=== PATIENT | male | born 1950 | race Caucasian/White ===

== ENCOUNTER 2018-06-10 09:58 | Emergency (ER) | payer OTHER, MEDICARE ==
[~2018-06-10] VITALS: Ht 185.4 cm; Wt 94.8 kg
[2018-06-10 10:18] VITALS: BP 144/70
[2018-06-10] MEDS ORDERED: CYCLOBENZAPRINE 10 MG TABLET. PO ONE (10:45)
[2018-06-10] MEDS ORDERED: traZODone 50 MG TABLET. PO STA (10:45)
--- NOTE | 2018-06-10 10:54 | PHYS DOC ---
Past Medical History Past Medical History: Hypertension Adult General Chief Complaint Chief Complaint: BACK PAIN OR INJURY HPI HPI Patient is a 67 year old who presents today complaining of mild lower back pain nonradiating in nature that has been going on for 3 days. Patient states he has history of chronic back pain and this is an exacerbation of his back pain. He states he typically takes a sleeping pill and sometimes a muscle relaxers. He states has not taken them for almost 3 days because the is admitted in the hospital at [facility] for colon cancer treatment and he has to be in the hospital with her every day. He states he has been sleeping on a recliner which exacerbates his pain. He is requesting trazodone and cyclobenzaprine which he takes occasionally for his symptoms. Denies any mid back pain, upper back pain, denies any chest pain or shortness of breath. Denies any fever cough nausea vomiting. Denies any urgency frequency or dysuria. Review of Systems Review of Systems Constitutional: Denies fever or chills [] Eyes: Denies change in visual acuity, redness, or eye pain [] HENT: Denies nasal congestion or sore throat [] Respiratory: Denies cough or shortness of breath [] Cardiovascular: No additional information not addressed in HPI [] GI: Denies abdominal pain, nausea, vomiting, bloody stools or diarrhea [] : Denies dysuria or hematuria [] Musculoskeletal: Reports low back pain Integument: Denies rash or skin lesions [] Neurologic: Denies headache, focal weakness or sensory changes [] All other systems were reviewed and found to be within normal limits, except as documented in this note. Current Medications Current Medications Current Medications Medications (Trade) Dose Ordered Sig/Raudel Start Time Stop Time Status Last Admin Dose Admin Cyclobenzaprine HCl (Flexeril) 10 mg 1X ONCE 06/10/18 10:45 06/10/18 10:46 UNV Trazodone HCl (Desyrel) 50 mg 1X STAT 06/10/18 10:45 06/10/18 10:46 UNV Allergies Allergies Allergies Coded Allergies Type Severity Reaction Last Updated Verified No Known Drug Allergies 06/10/18 No Physical Exam Physical Exam Constitutional: Well developed, well nourished, no acute distress, non-toxic appearance. [] HENT: Normocephalic, atraumatic, bilateral external ears normal, oropharynx moist, no oral exudates, nose normal. [] Eyes: PERRLA, EOMI, conjunctiva normal, no discharge. [] Neck: Normal range of motion, no tenderness, supple, no stridor. [] Cardiovascular:Heart rate regular rhythm, no murmur [] Lungs & Thorax: Bilateral breath sounds clear to auscultation [] Abdomen: Bowel sounds normal, soft, no tenderness, no masses, no pulsatile masses. [] Skin: Warm, dry, no erythema, no rash. [] Back: No tenderness, no CVA tenderness. [] Extremities: No tenderness, no cyanosis, no clubbing, ROM intact, no edema. [] Neurologic: Alert and oriented X 3, normal motor function, normal sensory function, no focal deficits noted. [] Psychologic: Affect normal, judgement normal, mood normal. [] Current Patient Data Vital Signs Vital Signs Date Time Temp Pulse Resp B/P (MAP) Pulse Ox O2 Delivery O2 Flow Rate FiO2 06/10/18 10:18 98.1 71 18 144/70 (94) 97 Room Air 98.1 EKG EKG [] Radiology/Procedures Radiology/Procedures [] Course & Med Decision Making Course & Med Decision Making Pertinent Labs and Imaging studies reviewed. (See chart for details) This is a 67-year-old male patient presenting to the ED today with exacerbation of low back pain, patient's symptoms are worse because he is staying in the hospital sleeping on a recliner taking care of the who is admitted for colon cancer treatment. Patient is also complaining of not sleeping since the was admitted. He has been on trazodone. He takes cyclobenzaprine as needed. He does not have any rx in the hospital and is not able to go home for his medications. Prescriptions for both were given. I recommended he follows up with the primary care doctor as soon as [place] can. Dragon Disclaimer Dragon Disclaimer This electronic medical record was generated, in whole or in part, using a voice recognition dictation system. Departure Departure Impression: Primary Impression: Back pain Additional Impression: Insomnia Disposition: HOME, SELF-CARE Condition: STABLE Referrals: UNKNOWN PCP NAME (PCP) follow up with your doctor as soon as you can Patient Instructions: Back Pain, Adult, Insomnia Additional Instructions: You were evaluated in the emergency room for back pain and insomnia. Try and get some time to fill the prescriptions provided and take them as ordered. Follow-up with your doctor as soon as possible. Try and get some time to rest. Scripts Cyclobenzaprine Hcl (CYCLOBENZAPRINE HCL) 10 Mg Tablet 1 TAB PO TID, #30 TAB Prov: RALPH PHILLIPS APRN 06/10/18 Trazodone Hcl (TRAZODONE HCL) 50 Mg Tablet 1 TAB PO QHS, #20 TAB 0 Refills Prov: RALPH PHILLIPS APRN 06/10/18 Problem Qualifiers Primary Impression: Back pain Back pain location: back pain in unspecified location Chronicity: acute Back pain laterality: bilateral Qualified Codes: M54.9 - Dorsalgia, unspecified Additional Impression: Insomnia Insomnia type: unspecified Qualified Codes: G47.00 - Insomnia, unspecified RALPH PHILLIPS APRN Jun 10, 2018 10:54
[2018-06-10] MEDS ORDERED: CYCL10TA2 PO (11:01)
[2018-06-10] MEDS ORDERED: TRAZ-85 PO (11:01)
== END 2018-06-10 11:31 | disposition home or self-care (01) ==
LOC: ER 09:58
DX: M54.5 Low back pain (principal); G47.00 Insomnia, unspecified; G89.29 Other chronic pain; I10 Essential (primary) hypertension
CPT/HCPCS: 99283

== ENCOUNTER 2018-06-14 19:36 | Emergency (ER) | payer OTHER, MEDICARE ==
[~2018-06-14] VITALS: Ht 185.4 cm; Wt 94.8 kg
[~2018-06-14 19:36] MED LIST: CYCL10TA2 PO; TRAZ-85 PO
[2018-06-14 19:53] VITALS: BP 127/87
[2018-06-14] MEDS ORDERED: DIPHTH,PERTUSS(ACELL),TET TOX 0.5 ML DISP.SYRIN. VAX IM ONE (20:15)
--- NOTE | 2018-06-14 20:49 | RAD ---
CT scan of the head without contrast 06/14/2018 Clinical History: Fall with head injury. Technique: Unenhanced, contiguous, 5 mm axial sections were obtained through the head. One or more of the following individualized dose reduction techniques were utilized for this study: 1. Automated exposure control. 2. Adjustment of the mA and/or kV according to patient size. 3. Use of iterative reconstruction technique. Findings: No previous studies are available for comparison. There is generalized parenchymal atrophy. Areas of decreased attenuation are seen within the periventricular and subcortical white matter of both cerebral hemispheres consistent with areas of small vessel ischemic disease. No acute parenchymal abnormality is seen. No extra-axial fluid collection is noted. No skull fracture is seen. Impression: No acute intracranial abnormality is seen. CT scan of the cervical spine without contrast 06/14/2018 Clinical history: Neck pain post fall. Technique: Unenhanced, contiguous, 0.625 mm axial sections were obtained through the cervical spine. Axial, coronal and sagittal reconstructed images were obtained. One or more of the following individualized dose reduction techniques were utilized for this study: 1. Automated exposure control. 2. Adjustment of the mA and/or kV according to patient size. 3. Use of iterative reconstruction technique. Findings: Sagittal and coronal reconstructed images demonstrate mild lateral curvature of the cervical spine, convex to the left. Degenerative changes are seen involving the mid and lower cervical disc spaces consisting of disc space narrowing, vertebral endplate sclerosis and mild to moderate anterior and posterior vertebral body osteophyte formation. No fracture or subluxation of the cervical vertebrae is seen. Degenerative changes are seen involving the uncovertebral and facet joints throughout the cervical disc spaces. Atherosclerotic calcification of the left carotid bifurcation is noted. Impression: No fracture or subluxation of the cervical vertebra is identified. Electronically signed by: Ilir Arriola MD (06/14/2018 8:45 PM) [facility]
--- NOTE | 2018-06-14 21:04 | RAD ---
CT scan of the facial bones without contrast 06/14/2018 CLINICAL HISTORY: Fall with facial injury TECHNIQUE: Unenhanced, contiguous, 0.625 mm axial sections were obtained facial bones and orbits. 3 mm reconstructed sagittal, axial and coronal images were obtained. One or more of the following individualized dose reduction techniques were utilized for this study: 1. Automated exposure control. 2. Adjustment of the mA and/or kV according to patient size. 3. Use of iterative reconstruction technique. FINDINGS: No facial bone fracture is seen. No orbital fracture is noted. The paranasal sinuses are essentially clear. IMPRESSION: No facial bone fracture is seen. Electronically signed by: Ilir Arriola MD (06/14/2018 9:00 PM) [facility]
--- NOTE | 2018-06-14 21:19 | PHYS DOC ---
Past Medical History Past Medical History: Asthma, Diabetes-Type II, Hypertension Past Surgical History: Cholecystectomy, Other Additional Past Surgical Histo: R rotator cuff, hernia Alcohol Use: Occasionally Drug Use: None Adult General Chief Complaint Chief Complaint: MECHANICAL FALL HPI HPI Patient is a 67 year old male with history of hypertension, diabetes type 2, who presents today status post falling. Patient states she was walking at the parking lot at [facility] when she stepped on a curb and fell face forward. Patient denies any loss of consciousness, he is complaining of left facial pain, left lateral neck pain. Patient denies being on any blood thinners. The is admitted at the hospital and patient was coming to visit the . Review of Systems Review of Systems Constitutional: Denies fever or chills [] Eyes: Denies change in visual acuity, redness, or eye pain [] HENT: Denies nasal congestion or sore throat [] Respiratory: Denies cough or shortness of breath [] Cardiovascular: No additional information not addressed in HPI [] GI: Denies abdominal pain, nausea, vomiting, bloody stools or diarrhea [] : Denies dysuria or hematuria [] Musculoskeletal: Denies back pain or joint pain [] Integument: Denies rash or skin lesions [] Neurologic: Left facial pain status post falling. Denies headache, focal weakness or sensory changes [] All other systems were reviewed and found to be within normal limits, except as documented in this note. Current Medications Current Medications Current Medications Medications (Trade) Dose Ordered Sig/Raudel Start Time Stop Time Status Last Admin Dose Admin Diphtheria/ Tetanus/Acell Pertussis (Boostrix) 0.5 ml ONCE ONCE 06/14/18 20:15 06/14/18 20:16 DC 06/14/18 20:54 0.5 ML Allergies Allergies Allergies Coded Allergies Type Severity Reaction Last Updated Verified No Known Drug Allergies 06/10/18 No Physical Exam Physical Exam Constitutional: Well developed, well nourished, no acute distress, non-toxic appearance. [] HENT: Normocephalic, atraumatic, bilateral external ears normal, oropharynx moist, no oral exudates, nose normal. [] Eyes: PERRLA, EOMI, conjunctiva normal, no discharge. [] Neck: Normal range of motion, diffuse paraspinal muscle tenderness to the left lateral cervical spine, no midline cervical spine tenderness, supple, no stridor. Cardiovascular:Heart rate regular rhythm, no murmur [] Lungs & Thorax: Bilateral breath sounds clear to auscultation [] Abdomen: Bowel sounds normal, soft, no tenderness, no masses, no pulsatile masses. [] Skin: Warm, dry, no bruising noted on the left facial area consistent with falling with a pair of glasses on that broke. Back: No tenderness, no CVA tenderness. [] Extremities: No tenderness, no cyanosis, no clubbing, ROM intact, no edema. [] Neurologic: Alert and oriented X 3, normal motor function, normal sensory function, no focal deficits noted. Cranial nerves II through XII intact Psychologic: Affect normal, judgement normal, mood normal. [] Current Patient Data Vital Signs Vital Signs Date Time Temp Pulse Resp B/P (MAP) Pulse Ox O2 Delivery O2 Flow Rate FiO2 06/14/18 19:53 98.4 97 18 127/87 (100) 98 Room Air 98.4 EKG EKG [] Radiology/Procedures Radiology/Procedures [] Course & Med Decision Making Course & Med Decision Making Pertinent Labs and Imaging studies reviewed. (See chart for details) This is a 67-year-old male patient presenting to the ED today to be evaluated status post falling at the parking lot here at the hospital. Patient fell face forward. Tetanus was updated. CT of the head, cervical spine and maxillary facial were negative for any acute findings. Patient was discharged with instructions to ice and elevate the affected areas. Tylenol for pain. Follow-up with PCP in 1-2 weeks. Dragon Disclaimer Dragon Disclaimer This electronic medical record was generated, in whole or in part, using a voice recognition dictation system. Departure Departure Impression: Primary Impression: Fall from standing Additional Impressions: Facial contusion Cervical strain, acute Disposition: 01 HOME, SELF-CARE Condition: STABLE Referrals: RALF PHAN (PCP) Follow-up in one week Patient Instructions: Cervical Strain and Sprain with [facility], Facial or Scalp Contusion, [id number], Fall Prevention and Home Safety Additional Instructions: You were evaluated in the emergency room after falling. Your CT of the head, face, neck: Negative for any acute findings. Follow-up with your doctor in one week. Problem Qualifiers Primary Impression: Fall from standing Encounter type: initial encounter Qualified Codes: W19.XXXA - Unspecified fall, initial encounter Additional Impressions: Facial contusion Encounter type: initial encounter Qualified Codes: S00.83XA - Contusion of other part of head, initial encounter Cervical strain, acute Encounter type: initial encounter Qualified Codes: S16.1XXA - Strain of muscle, fascia and tendon at neck level, initial encounter RALPH PHILLIPS APRN Jun 14, 2018 21:19
== END 2018-06-14 21:25 | disposition home or self-care (01) ==
LOC: ER 19:36
DX: S16.1XXA Strain of muscle, fascia and tendon at neck level, initial encounter (principal); S00.83XA Contusion of other part of head, initial encounter; J45.909 Unspecified asthma, uncomplicated; E11.9 Type 2 diabetes mellitus without complications; I10 Essential (primary) hypertension; Z90.49 Acquired absence of other specified parts of digestive tract; W18.31XA Fall on same level due to stepping on an object, initial encounter; Y93.01 Activity, walking, marching and hiking; Y92.481 Parking lot as the place of occurrence of the external cause; Y99.8 Other external cause status
CPT/HCPCS: 70450; 70486; 72125; 90471; 90715; 99284